=== PATIENT | male | born 1935 | race Caucasian/White ===

== ENCOUNTER 2017-05-24 16:27 | Inpatient (IN) ==
--- NOTE | 2017-05-24 18:37 | XRay Report ---
2 view chest Indication: Shortness of breath Comparison: April 11, 2016 Findings: Cardiomediastinal contours are stable. Lungs are clear bilaterally. . No acute osseous abnormalities. Visualized upper abdomen demonstrates no acute pathology. Impression: No acute cardiopulmonary findings PROCEDURE INTERPRETED AT [facility] DEPARTMENT OF RADIOLOGY Final Report Signed by: Justin Aguilar MD
[2017-05-24 19:08] LABS: Basophils % 0.2 % (0.0-0.8); Eosinophils # 0.1 10*3/uL (0.0-0.87); Eosinophils % 0.5 % (0.00-10.9); Hemoglobin 14.2 GM/DL (14.0-18.0); Immature Granulocytes % 0.4 %; Immature Granulocytes Absolute 0.09 #; Lymphocytes # 1.3 10*3/uL (1.4-4.0); Lymphocytes % 6.5 % (21.2-54.2); Mean Corpuscular HGB Conc 35.5 GM/DL (32-36); Mean Corpuscular Hemoglobin 33 PG (27-34); Monocytes # 1.1 10*3/uL (0.11-0.8); Monocytes % 5.5 % (1.7-12.7); Neutrophils # 17.8 10*3/uL (1.4-7.4); Neutrophils % 86.9 % (38.7-73.9); Platelet Count 174 T/CUMM (130-400); Red Cell Distribution Width 12.7 % (9.3-17.3); White Blood Count 20.5 T/CUMM (4-12)
[2017-05-24 19:28] LABS: Albumin 3.6 G/DL (3.4-5.0); Bilirubin,Total 0.8 MG/DL (0.2-1.0); Calcium 9.3 MG/DL (8.5-10.1); Osmolality,Calculated 282.4 MOS/KG (273-304); Potassium 4.3 MMOL/L (3.5-5.1); Total Protein 6.4 G/DL (6.4-8.3)
[2017-05-24 19:30] LABS: Apearance,Urine CLEAR (Clear); Bilirubin,Urine Negative (Negative); Blood, Urine Negative (Negative); Glucose,Urine (UA) Negative (Negative); Hyaline Casts,Urine 1 /LPF (0-3); Ketones,Urine Negative (Negative); Mucus,Urine Occasional /LPF (Occasional); Nitrite,Urine Negative (Negative); Protein,Urine Negative; RBC,Urine <1 /HPF (0-4); Squamous Epithelial Cell,Urine Occasional /HPF (0-10); Urine Color Yellow (Yellow); Urine Urobilinogen < 2.0 EU/DL (0.2-1.0); WBC,Urine 1 /HPF (0-6)
--- NOTE | 2017-05-24 20:00 | Emergency Department Note ---
IRuba Brittany, am scribing for, and in the presence of, Dmitriy Mendez DO 18 :03. IAndrea John, DO, personally performed the services described in this documentation, ascribed by Amparo Yeh in my presence, and it is both accurate and complete [id number] . Arrival - Arrival Chief Complaint: Fever Stated Complaint: fever chills ED Nursing Triage Note: pt ambulatory to triage with c/o having fever and chills with a stuffy nose. pt states onset today around 1330. pt states he has taken ibuprofen @ 1430 today. Mode of Arrival: Ambulatory Limitations: No Limitations Source: Patient, Family Time Seen by Provider: 05/24/17 17:49 - History of Present Illness HPI Narrative: This is an 81 y/o white male,who presents to the ED with c/o fever and chills which started at 1330 today. His states they were at a fall festive and when they got back home, pt started to have a fever and chills. He notes a cough and nasal congestion but denies body aches or nausea. He states he is still drinking fluids and eating normally. Pt has no other complaints/pain in the ED at this time. Pt has a PMHx of HTN, dyslipidemia, migraines, GOUT, GI problems, and prostate cancer. Pt has had an eye surgery, cholecystectomy, EGD, T&A, and orthopedic surgery. Pt has a family medical Hx of liver and ovarian cancers. Pt denies a social Hx. Onset (ago): hour(s) (Started at 1330 today) Consistency: constant Severity: mild, moderate Allergies/Adverse Reactions: Allergies Allergy/AdvReac Type Severity Reaction Status Date / Time No Known Allergies Allergy Verified 05/24/17 16:46 Home Medications: Home Medications Medication Instructions Recorded Confirmed Type Allopurinol 100 mg PO DAILY 04/10/16 06/28/16 History Atorvastatin [Lipitor] 10 mg PO DIRECTED 04/10/16 06/28/16 History Tamsulosin [Flomax] 0.4 mg PO DAILY 04/10/16 06/28/16 History Lisinopril 10 mg PO DAILY 04/11/16 06/28/16 History Aspirin EC Tab 81 mg PO DAILY 06/28/16 06/28/16 History Review of System - Review of System 12 point system: reviewed and no additional remarkable complaints except as stated - Review of System Constitutional: Present: chills, fever (Low grade fever) Respiratory: Present: cough, other (Nasal Congestion) Gastrointestinal: Absent: nausea Medical,Surgical,& Family Hx - Medical History Medical History: noncontributory (problems) Cardio: History of: Hypertension No history of: Cardiac Dysrhythmia, Congenital Heart Disease, [place], Pacemaker Neurology: History of: Migraine No history of: Cerebrovascular Accident, Seizures, Vertigo HEENT: History of: Ear Problem ([place]) No history of: Glaucoma Endocrine: History of: Dyslipidemia No history of: Thyroid Disorder Rheumatology: History of;: Gout Genitourinary: History of: Prostate Problems (ENLARGEMENT; states current prostate ca) Gastrointestinal: History of: GI Problems (cbd lead-2015) No history of: GERD, Hepatitis, Liver Problems Musculoskeletal: History of: Musculoskeletal Problems (BACK AND SHOULDER SURGERY ) Hematology: No history of: Anemia, Blood Transfusion Reaction Other: History of: Cancer (prostate) No history of: Anesthesia Reactions - Surgical History Cardiac Surgeries: Patient Denies: Cardiac Catheterization HEENT Surgeries: Surgical HX of: Eye Surgery (cataracts), Tonsilectomy & Adenoidectomy Abdominal Surgeries: Surgical HX of: Cholecystectomy, EGD Patient denies: Appendectomy Reproductive Surgeries: Patient denies;: Prostate Surgery Orthopedic Surgeries: Surgical HX of;: Orthopedic Surgery (rotator cuff shoulder -1987) Patient denies;: Total Hip Replacement, Total Knee Replacement - Family History Family History: Reports;: Family Cancer (brother-liver, mother-ovarian) - Social History Smoking Status: Never smoker Frequency of Alcohol Use: None Type of Drug Use: None Exam Vital Signs: Vital Signs Temperature 99.2 F 05/24/17 16:43 Pulse Rate 75 05/24/17 18:40 Respiratory Rate 18 05/24/17 18:40 Blood Pressure 107/77 05/24/17 18:40 O2 Sat by Pulse Oximetry 96 05/24/17 16:43 - General General appearance: alert, in no apparent distress - Head Head exam: Present: atraumatic, normocephalic, normal inspection - Eye Eye exam: Present: PERRL, EOMI. Absent: nystagmus, miosis, mydriasis - ENT ENT exam: Present: mucous membranes moist, TM's normal bilaterally - Neck Neck exam: Present: full ROM, trachea midline. Absent: tenderness - Chest Chest inspection: Present: symmetric chest wall rise. Absent: tenderness - Respiratory Respiratory exam: Present: normal lung sounds bilaterally. Absent: respiratory distress - Cardiovascular Cardiovascular exam: Present: regular rate, normal rhythm, normal heart sounds. Absent: murmur, rubs, gallop, clicks, JVD - Abdominal Exam Abdominal exam: Present: soft, normal bowel sounds. Absent: tenderness - Rectal Exam Rectal exam: Present: deferred - Extremities Exam Extremities exam: Present: full ROM, normal capillary refill. Absent: tenderness, pedal edema - Back Exam Back exam: Present: full ROM. Absent: tenderness, muscle spasm, rashes - Neurological Exam Neurological exam: Present: alert, oriented X3, CN II-XII intact. Absent: motor sensory deficit - Psychiatric Psychiatric exam: Present: normal affect, normal mood. Absent: depressed, agitated, anxious, flat affect, manic - Skin Skin exam: Present: warm, dry, intact, normal color. Absent: rash, cyanosis, diaphoresis Results - Labs CBC & BMP: 05/24/17 18:22 05/24/17 18:22 Lab Results: I have reviewed the patients labs Labs: Laboratory Tests 05/24/17 18:22 WBC 20.5 H RBC 4.30 Hgb 14.2 Hct 40.0 L MCV 93.0 MCH 33 MCHC 35.5 RDW 12.7 Plt Count 174 MPV 10.0 Neut % (Auto) 86.9 H Lymph % (Auto) 6.5 L [place] % (Auto) 5.5 Eos % (Auto) 0.5 Baso % (Auto) 0.2 Neut # (Auto) 17.8 H Lymph # (Auto) 1.3 L [place] # (Auto) 1.1 H Eos # (Auto) 0.1 Baso # (Auto) 0.0 Immature Gran % 0.4 Nucleated RBC % 0.0 Immature Gran # 0.09 Nucleated RBCs # 0.00 Immature Plt Fraction 0.0 Laboratory Tests 05/24/17 05/24/17 05/24/17 18:22 18:22 18:22 WBC 20.5 H RBC 4.30 Hgb 14.2 MCV 93.0 MCH 33 MCHC 35.5 RDW 12.7 Plt Count 174 MPV 10.0 Neut % (Auto) 86.9 H Lymph % (Auto) 6.5 L [place] % (Auto) 5.5 Eos % (Auto) 0.5 Baso % (Auto) 0.2 Neut # (Auto) 17.8 H Lymph # (Auto) 1.3 L [place] # (Auto) 1.1 H Eos # (Auto) 0.1 Baso # (Auto) 0.0 Immature Gran % 0.4 Nucleated RBC % 0.0 Immature Gran # 0.09 Nucleated RBCs # 0.00 Immature Plt Fraction 0.0 Sodium 140 Potassium 4.3 Chloride 106 Carbon Dioxide 27 Anion Gap 11.3 BUN 26 H Creatinine 1.40 H GFR Calculation 55 BUN/Creatinine Ratio 18.00 Glucose 87 Calculated Osmolality 282.4 Calcium 9.3 Total Bilirubin 0.80 AST 19 ALT 23 Alkaline Phosphatase 65 Total Protein 6.4 Albumin 3.6 Globulin 2.8 Albumin/Globulin Ratio 1.2 Urine Color Yellow Urine Appearance Clear Urine pH 5.0 Ur Specific [place] 1.010 Urine Protein Negative Urine Glucose (UA) Negative Urine Ketones Negative Urine Blood Negative Urine Nitrate Negative Urine Bilirubin Negative Urine Urobilinogen < 2.0 H Urine Leukocytes Negative Urine RBC <1 Urine WBC 1 Ur Squamous Epith Cells Occasional Hyaline Casts 1 Urine Mucus Occasional Ur Culture Indicated? Not indicated - Diagnostic Findings Procedure: Chest x-ray: report reviewed by me (Nothing acute) Disposition Clinical Impression: Fever of unknown origin Case discussed with: patient, patient's family Disposition: Still a Patient Condition: Stable Time of Disposition: 20:00
--- NOTE | 2017-05-24 20:50 | Hospitalist History & Physical ---
Assessment and Plan - Time spent with patient Time spent with patient: Less than 30 minutes (1) Fever of unknown origin Status: Acute Assessment and plan: Afebrile at present Pending blood and urine cultures Chest x-ray, urine, flu, and strep negative Tylenol as needed Rocephin 1 g every 12 IV Current Visit: Yes (2) Leukocytosis Status: Acute Assessment and plan: No apparent infection at present time We will repeat labs in the a.m. Current Visit: Yes (3) Hypertension Status: Chronic Assessment and plan: We will continue home medications once confirmed Current Visit: No History of Present Illness Chief complaint: fever History of present illness: Called to fast track for Mr. Gatica who is a 81 year old male that presents today complaining of a fever that started approximately 1330 today. Patient started experiencing chills and took 400 mg of Motrin. An hour later he checked his fever and it was 101.0. He denies any chest pain, shortness of breath, coughing, dysuria, nausea, vomiting, diarrhea, inflamed joints, rashes but does complain of a scratchy throat and nasal congestion. Today he received a chest x-ray and urinalysis that was negative. Flu and strep were negative. White blood cell count was 20.5 with neutrophils 86.9%. 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 Patient is followed by Dr. Dominguez in [place] who is a neurologist. Patient advises that his last PSA was 3.[address] Proctor said his prostate cancer was nonlethal. Patient also has a history of pneumonia that turned into sepsis in December 2016. Patient will be admitted under hospital medicine, blood and urine cultures obtained, repeat blood work and chest x-ray in a.m., pending pro calcitonin and IV antibiotics. Home medications will be reconciled once confirmed. Patient is a full code. Home Medications Medication Instructions Recorded Confirmed Type Allopurinol 100 mg PO DAILY 04/10/16 06/28/16 History Atorvastatin [Lipitor] 10 mg PO DIRECTED 04/10/16 06/28/16 History Tamsulosin [Flomax] 0.4 mg PO DAILY 04/10/16 06/28/16 History Lisinopril 10 mg PO DAILY 04/11/16 06/28/16 History Aspirin EC Tab 81 mg PO DAILY 06/28/16 06/28/16 History Allergies Allergy/AdvReac Type Severity Reaction Status Date / Time No Known Allergies Allergy Verified 05/24/17 16:46 Medical,Surgical,& Family Hx - Medical History Cardio: History of: Hypertension No history of: Cardiac Dysrhythmia, Congenital Heart Disease, CHF, [place], Pacemaker Psychological: No history of: Psychiatric Problems Neurology: History of: Migraine No history of: Cerebrovascular Accident, Seizures, Vertigo HEENT: History of: Ear Problem ([place]) No history of: Glaucoma Endocrine: History of: Dyslipidemia No history of: Thyroid Disorder Rheumatology: History of;: Gout Respiratory: History of: Pneumonia (December 2015) Renal: No history of: Renal Problems Genitourinary: History of: Prostate Problems (ENLARGEMENT; states current prostate ca) Gastrointestinal: History of: GI Problems (cbd lead-2015) No history of: GERD, Hepatitis, Liver Problems Musculoskeletal: History of: Musculoskeletal Problems (BACK AND SHOULDER SURGERY ) Hematology: No history of: Anemia, Blood Transfusion Reaction Other: History of: Cancer (prostate and melanoma) No history of: Anesthesia Reactions - Surgical History Cardiac Surgeries: Patient Denies: Cardiac Catheterization HEENT Surgeries: Surgical HX of: Eye Surgery (cataracts), Tonsilectomy & Adenoidectomy Abdominal Surgeries: Surgical HX of: Cholecystectomy, EGD Patient denies: Appendectomy Reproductive Surgeries: Patient denies;: Prostate Surgery Orthopedic Surgeries: Surgical HX of;: Orthopedic Surgery (rotator cuff shoulder -1987) Patient denies;: Total Hip Replacement, Total Knee Replacement - Family History Family History: Reports;: Family Cancer (brother-liver, mother-ovarian), Family Diabetes (Mother, father, brother, and 2 sisters), Family Heart Disease (Mother , father, and brotherMI), Family Stroke (Mother), Additional Family History ( Sisterhypothyroidism) - Social History Smoking Status: Never smoker Frequency of Alcohol Use: None Type of Drug Use: None Marital Status: Lives With:: Spouse Functional capacity: independent ambulation - Constitutional Constitutional: Present: chills, fatigue, fever(s). Absent: anorexia, headache( s), lethargy, night sweats, weight gain, weight loss - EENT Eyes: Absent: blurry vision Ears: Absent: decreased hearing Nose, mouth and throat: Present: nasal congestion, sore throat. Absent: hoarseness, neck mass, neck pain, throat swelling, tongue swelling, vertigo - Cardiovascular Cardiovascular: Absent: chest pain at rest, chest pain with activity, dyspnea, dyspnea on exertion, edema, lightheadedness, orthopnea, palpitations - Respiratory Respiratory: Absent: cough, dyspnea, hemoptysis - Gastrointestinal Gastrointestinal: Absent: abdominal pain, constipation, diarrhea, nausea, vomiting - Genitourinary Genitourinary: Absent: hematuria - Musculoskeletal Musculoskeletal: Absent: joint swelling, muscle cramps - Neurological Neurological: Absent: abnormal gait, confusion, convulsions - Psychiatric Psychiatric: Absent: anxiety - Endocrine Endocrine: Absent: cold intolerance, heat intolerance - Hematologic/Lymphatic Hematologic/Lymphatic: Absent: easy bleeding, easy bruising Exam - Constitutional Vitals: Period Temp Pulse Resp BP Sys/Zaman Pulse Ox Last 24 Hr 99.2 F 75-98 18-18 107-116/71-77 96 General appearance: normal weight, no acute distress - Head Head exam: Present: normal inspection, normocephalic - Eye Eye exam: Present: EOMI Pupils: Present: QUYEN - ENT ENT exam: Present: normal exam, normal external ear exam, normal oropharynx - Expanded ENT Exam Ear exam: Present: TM's normal bilaterally Mouth exam: Present: moist Throat exam: Present: normal inspection - Neck Neck exam: Present: normal inspection. Absent: lymphadenopathy - Respiratory Respiratory exam: Present: clear to auscultation bilaterally (Respirations even and unlabored. Symmetrical rise and fall of chest.) - Cardiovascular Cardiovascular exam: Present: regular rate and rhythm. Absent: diastolic murmur , systolic murmur - GI/Abdominal GI/Abdominal exam: Present: normal bowel sounds, soft. Absent: distended, tenderness - Extremities Exam Extremities exam: Present: normal inspection, normal capillary refill, full ROM - Back Exam Back exam: Present: normal inspection - Neurological Exam Neurological exam: Present: alert, oriented X3 (Answers questions appropriately. Makes good eye contact.), CN II-XII intact (Gross[place]) - Psychiatric Psychiatric exam: Present: normal affect, normal mood - Skin Skin exam: Present: normal color, warm, dry, intact Results - Labs CBC & BMP: 05/24/17 18:22 05/24/17 18:22 Lab Results: I have reviewed the past 24 hour labs
[2017-05-24] MEDS ORDERED: DOCUSATE SODIUM 100 MG CAPSULE PO PRN (21:27)
[2017-05-24] MEDS ORDERED: ONDANSETRON 4 MG/2 ML VIAL IV PRN (21:27)
[2017-05-24] MEDS ORDERED: ACETAMINOPHEN 325 MG TABLET PO PRN (21:27)
--- NOTE | 2017-05-24 22:26 | Order Completion Report ---
See report scanned to EMR
[2017-05-24] MEDS: SODIUM CHLORIDE 0.9% 1,000 ML IV SCH (22:42)
[2017-05-24] MEDS: ENOXAPARIN 40 MG/0.4 ML SYRINGE SUBCUT SCH (22:42)
[2017-05-25 04:28] LABS: Basophils % 0.3 % (0.0-0.8); Eosinophils % 0.3 % (0.00-10.9); Hematocrit 40.5 VOL% (42.0-52.0); Hemoglobin 14.4 GM/DL (14.0-18.0); Immature Granulocytes % 0.3 %; Immature Granulocytes Absolute 0.05 #; Lymphocytes # 0.7 10*3/uL (1.4-4.0); Lymphocytes % 4.8 % (21.2-54.2); Mean Corpuscular HGB Conc 35.6 GM/DL (32-36); Mean Corpuscular Hemoglobin 33 PG (27-34); Mean Corpuscular Volume 93.5 FL (87-102); Mean Platelet Volume 10.9 FL (9.6-12.0); Monocytes # 0.8 10*3/uL (0.11-0.8); Monocytes % 5.5 % (1.7-12.7); Neutrophils # 12.9 10*3/uL (1.4-7.4); Neutrophils % 88.8 % (38.7-73.9); Platelet Count 140 T/CUMM (130-400); Red Blood Count 4.33 MC/CUMM (3.8-5.5); Red Cell Distribution Width 12.5 % (9.3-17.3); White Blood Count 14.5 T/CUMM (4-12)
[2017-05-25 04:58] LABS: Albumin 3.5 G/DL (3.4-5.0); Bilirubin,Total 0.8 MG/DL (0.2-1.0); Calcium 9.3 MG/DL (8.5-10.1); Osmolality,Calculated 285.1 MOS/KG (273-304); Potassium 4.1 MMOL/L (3.5-5.1); Total Protein 6.3 G/DL (6.4-8.3)
[2017-05-25 05:18] LABS: Platelet Estimate Normal
[2017-05-25 05:54] LABS: Band Neutrophils 2 % (0-10); Eosinophils 1 % (0-10); Lymphocytes 4 % (20-55); Segmented Neutrophils 88 % (50-85); Total Cells Counted 100
[2017-05-25 05:55] LABS: Microcytosis Slight
[2017-05-25 05:56] LABS: Platelet Estimate Adequate
--- NOTE | 2017-05-25 08:46 | XRay Report ---
2 view chest Indication: Fever, cough Comparison: Previous day at 6:16 PM Findings: Cardiomediastinal contours are normal. Bibasilar atelectasis. No acute osseous abnormalities. Visualized upper abdomen demonstrates no acute pathology. Impression: No acute cardiopulmonary findings PROCEDURE INTERPRETED AT [facility] DEPARTMENT OF RADIOLOGY Final Report Signed by: Justin Aguilar MD
[2017-05-25] MEDS: PANTOPRAZOLE 40 MG TABLET PO SCH (09:12)
[2017-05-25] MEDS: SODIUM CHLORIDE 0.9% 1,000 ML IV SCH (10:26)
[2017-05-25] MEDS ORDERED: ATORVASTATIN 10 MG TABLET PO SCH (11:30)
[2017-05-25] MEDS: TAMSULOSIN 0.4 MG CAPSULE PO SCH (11:54)
[2017-05-25] MEDS: LISINOPRIL 10 MG TABLET PO SCH (11:55)
[2017-05-25] MEDS: ALLOPURINOL 100 MG TABLET PO SCH (11:55)
--- NOTE | 2017-05-25 12:10 | Family Practice History&Phys ---
Assessment and Plan (1) Fever of unknown origin Status: Acute Assessment and plan: No immediate source of infection noted. Probably a viral type illness. And she is improved this a.m. We will continue close observation and therapy Current Visit: Yes (2) Leukocytosis Status: Acute Assessment and plan: White blood cell count 20,000 on admission. Will look for source of infection. Current Visit: Yes (3) History of prostate cancer Status: Chronic Assessment and plan: Apparently is stable to present Current Visit: Yes (4) Hyperlipidemia Status: Chronic Assessment and plan: Stable with present medication Current Visit: Yes (5) Hypertension Status: Chronic Assessment and plan: Stable on present medications Current Visit: No History of Present Illness Chief complaint: Fever and weakness History of present illness: Mr. Gatica is a 81 year old male Patient is an 81-year-old white male who was admitted yesterday with onset of fever chills and weakness. He had a temperature of 101 in the emergency room. He apparently was mistakenly admitted to the hospitalist service. I was not notified until this a.m. His WBC on admission was 20,500. Chest x-ray and other studies were stable. In view of degree of symptoms and age patient was admitted for further evaluation therapy Home Medications Medication Instructions Recorded Confirmed Type Allopurinol 100 mg PO DAILY 04/10/16 05/24/17 History Atorvastatin [Lipitor] 10 mg PO QOTHER DAY 04/10/16 05/24/17 History Tamsulosin [Flomax] 0.4 mg PO DAILY 04/10/16 05/24/17 History Lisinopril 10 mg PO DAILY 04/11/16 05/24/17 History Aspirin EC Tab 81 mg PO DAILY 06/28/16 05/24/17 History Allergies Allergy/AdvReac Type Severity Reaction Status Date / Time No Known Allergies Allergy Verified 05/24/17 16:46 Medical,Surgical,& Family Hx - Medical History Cardio: History of: Hypertension No history of: Cardiac Dysrhythmia, Congenital Heart Disease, CHF, [place], Pacemaker Psychological: No history of: Psychiatric Problems Neurology: History of: Migraine No history of: Cerebrovascular Accident, Seizures, Vertigo HEENT: History of: Ear Problem ([place]) No history of: Glaucoma Endocrine: History of: Dyslipidemia No history of: Thyroid Disorder Rheumatology: History of;: Gout Respiratory: History of: Pneumonia (December 2015) Renal: No history of: Renal Problems Genitourinary: History of: Prostate Problems (ENLARGEMENT; states current prostate ca) Gastrointestinal: History of: GI Problems (cbd lead-2015) No history of: GERD, Hepatitis, Liver Problems Musculoskeletal: History of: Musculoskeletal Problems (BACK AND SHOULDER SURGERY ) Hematology: No history of: Anemia, Blood Transfusion Reaction Other: History of: Cancer (prostate and melanoma) No history of: Anesthesia Reactions - Surgical History Cardiac Surgeries: Patient Denies: Cardiac Catheterization HEENT Surgeries: Surgical HX of: Eye Surgery (cataracts), Tonsilectomy & Adenoidectomy Abdominal Surgeries: Surgical HX of: Cholecystectomy, EGD Patient denies: Appendectomy Reproductive Surgeries: Patient denies;: Prostate Surgery Orthopedic Surgeries: Surgical HX of;: Orthopedic Surgery (rotator cuff shoulder -1987) Patient denies;: Total Hip Replacement, Total Knee Replacement - Family History Family History: Reports;: Family Cancer (brother-liver, mother-ovarian), Family Diabetes (Mother, father, brother, and 2 sisters), Family Heart Disease (Mother , father, and brotherMI), Family Stroke (Mother), Additional Family History ( Sisterhypothyroidism) - Social History Smoking Status: Never smoker Frequency of Alcohol Use: None Type of Drug Use: None Exam - Constitutional Vitals: Period Temp Pulse Resp BP Sys/[place] Pulse Ox Last 24 Hr 97.7 F-101.2 F 70-98 18-21 100-129/56-77 93-98 General appearance: no acute distress - Head Head exam: Present: normal inspection - Eye Pupils: Present: QUYEN - ENT ENT exam: Present: normal exam - Neck Neck exam: Present: normal inspection - Respiratory Respiratory exam: Present: clear to auscultation bilaterally - Cardiovascular Cardiovascular exam: Present: irregular rhythm - GI/Abdominal GI/Abdominal exam: Present: normal bowel sounds, soft - Extremities Exam Extremities exam: Present: normal inspection - Back Exam Back exam: Present: normal inspection - Neurological Exam Neurological exam: Present: alert, oriented X3 - Psychiatric Psychiatric exam: Present: normal affect - Skin Skin exam: Present: normal color Results - Labs CBC & BMP: 05/25/17 03:50 05/25/17 03:50
--- NOTE | 2017-05-25 20:25 | XRay Report ---
Three-view sinus May 25, 2017 Indication: Sinus pressure and pain Comparison images not available Findings: Mucosal thickening involving left maxillary sinus. Remaining paranasal sinuses are well aerated. No orbital or facial bone fractures. Regional soft tissues are within normal limits. Impression: Left maxillary sinus inflammatory changes PROCEDURE INTERPRETED AT [facility] DEPARTMENT OF RADIOLOGY Final Report Signed by: Justin Aguilar MD
[2017-05-25] MEDS: ENOXAPARIN 40 MG/0.4 ML SYRINGE SUBCUT SCH (20:33)
[2017-05-26] MEDS: SODIUM CHLORIDE 0.9% 1,000 ML IV SCH (03:12)
[2017-05-26 06:12] LABS: Basophils % 0.7 % (0.0-0.8); Eosinophils # 0.2 10*3/uL (0.0-0.87); Eosinophils % 3.5 % (0.00-10.9); Hematocrit 37.6 VOL% (42.0-52.0); Hemoglobin 13.4 GM/DL (14.0-18.0); Immature Granulocytes % 0.3 %; Immature Granulocytes Absolute 0.02 #; Lymphocytes # 1.9 10*3/uL (1.4-4.0); Lymphocytes % 31.2 % (21.2-54.2); Mean Corpuscular HGB Conc 35.6 GM/DL (32-36); Mean Corpuscular Hemoglobin 33 PG (27-34); Mean Corpuscular Volume 93.1 FL (87-102); Mean Platelet Volume 10.1 FL (9.6-12.0); Monocytes # 0.8 10*3/uL (0.11-0.8); Monocytes % 12.6 % (1.7-12.7); Neutrophils # 3.1 10*3/uL (1.4-7.4); Neutrophils % 51.7 % (38.7-73.9); Platelet Count 139 T/CUMM (130-400); Red Blood Count 4.04 MC/CUMM (3.8-5.5); Red Cell Distribution Width 12.7 % (9.3-17.3)
--- NOTE | 2017-05-26 07:24 | Discharge Summary ---
Hospital Course - Hospital Course Hospital Course: Patient is a 81-year-old gentleman was admitted to [facility] through the emergency room after developing shaking chills and profound weakness. Patient was found to have white blood count in excess of 20,000. Patient was made my service and placed on IV Rocephin. His white blood count has responded. Chest x-ray on admission revealed no acute abnormality and it was repeated yesterday. I saw him yesterday evening and ordered sinus films which revealed have left maxillary sinusitis. Patient feels back to his normal be discharged home today on oral antibiotics and follow-up with ENT. Diagnosis - Discharge Diagnosis (1) Maxillary sinusitis Status: Acute (2) Leukocytosis Status: Acute Discharge Plan - Discharge Data Disposition: Disch To Home/Self Care Condition at Discharge: Stable Discharge Diet: advance to your usual diet Activity: resume usual activities as tolerated Hygiene: no restrictions Weight Bearing at Discharge: full weight bearing Driving: no restrictions Contact your physician if you experience:: fever over 101 - Discharge Medications New Acetaminophen Tab [Tylenol Tab] 650 mg PO Q4H PRN tablet PRN Reason: Fever, Headache, Mild Pain predniSONE TAB [PredniSONE] 20 mg PO DAILY #7 tablet Cefdinir [Omnicef] 300 mg PO BID W/MEALS #20 capsule Continue Tamsulosin [Flomax] 0.4 mg PO DAILY Atorvastatin [Lipitor] 10 mg PO QOTHER DAY Allopurinol 100 mg PO DAILY Lisinopril 10 mg PO DAILY Aspirin EC Tab 81 mg PO DAILY - Follow Up or Referral Follow Up: Michael Davila DO [Physician] - 2 Weeks Giorgio Wan MD [Physician] - 2 Weeks - Forms/Instructions Exam - Constitutional Vitals: Period Temp Pulse Resp BP Sys/[place]aman Pulse Ox Last 24 Hr 97.7 F-98.1 F 64-83 18-20 100-135/60-83 93-98 Exam: Objective well-developed gentleman in no acute distress. Is awake and alert and able give an excellent history. He denies any problems this morning and states he feels back to his normal. Cardiovascular: Heart rates regular without murmurs or gallops. Respiratory: The lungs are clear to auscultation bilaterally. Abdomen: Abdomen soft and nontender to palpation. Extremities: There is no calf swelling or tenderness. Discharge Results Procedures and tests throughout hospitalization: Pending Orders 05/24/17 18:22 Urine Culture Stat 05/24/17 22:16 Blood Culture Stat Procalcitonin, S Stat 05/26/2017: Patient's sinus x-rays were yesterday revealed left maxillary sinusitis. Labs on day of discharge: Labs from last 24 hours 05/26/17 05/26/17 05:32 05:32 WBC 6.0 D RBC 4.04 Hgb 13.4 L Hct 37.6 L MCV 93.1 MCH 33 MCHC 35.6 RDW 12.7 Plt Count 139 MPV 10.1 Neut % (Auto) 51.7 Lymph % (Auto) 31.2 [place] % (Auto) 12.6 Eos % (Auto) 3.5 Baso % (Auto) 0.7 Neut # (Auto) 3.1 Lymph # (Auto) 1.9 [place] # (Auto) 0.8 Eos # (Auto) 0.2 Baso # (Auto) 0.0 Immature Gran % 0.3 Nucleated RBC % 0.0 Immature Gran # 0.02 Nucleated RBCs # 0.00 Immature Plt Fraction 0.0 C-Reactive Protein 3.92 H Preliminary micro results at discharge 05/24/17 22:16 Blood Culture - Preliminary Blood No growth at 1 day 05/24/17 22:16 Blood Culture - Preliminary Blood No growth at 1 day 05/24/17 18:22 Urine Culture - Preliminary Urine,Clean Catch No Growth at 12 hours. DS: Provider Date of admission: 05/24/17 19:57 Primary care physician: . No PCP Attending physician on admission: Giorgio Wan MD Discharging clinician: Giorgio Wan MD Expected date of discharge: 05/26/17
[2017-05-26 08:16] VITALS: BP 143/81
[2017-05-26] MEDS: TAMSULOSIN 0.4 MG CAPSULE PO SCH (08:18)
[2017-05-26] MEDS: ALLOPURINOL 100 MG TABLET PO SCH (08:18)
[2017-05-26] MEDS: PANTOPRAZOLE 40 MG TABLET PO SCH (08:18)
[2017-05-26] MEDS: LISINOPRIL 10 MG TABLET PO SCH (08:18)
[2017-05-26] MEDS ORDERED: ASPIRIN EC 81 MG TABLET PO SCH (09:00)
== END 2017-05-26 10:28 | disposition home or self-care (01) | DRG 153 ==
LOC: N.ED 16:27 → N.EDINP 19:57 → N.2E 21:08
PROVIDERS: ADMIT Family Medicine; ATTEND Family Medicine